=== PATIENT | female | born 1965 | race African-American/Black ===

== ENCOUNTER 2023-04-06 18:02 | Emergency (ER) | payer MEDICAID ==
[~2023-04-06] VITALS: Ht 167.6 cm; Wt 72.0 kg
[2023-04-06 18:10] VITALS: BP 126/101; PULSE 84; RESP 20; TEMP 98.8; O2SAT 100
== END 2023-04-06 21:45 | disposition left against medical advice (07) ==
LOC: ER 18:02
DX: R05.9 Cough, unspecified (principal); R07.89 Other chest pain
CPT/HCPCS: 71045; 99283